=== PATIENT | female | born 1945 | race American Indian/Alaskan Native ===

== ENCOUNTER 2018-02-08 15:38 | Emergency (ER) | payer OTHER, MEDICARE ==
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
[2018-02-08] MEDS ORDERED: ULTRAM PO ONE (23:08)
[2018-02-08 23:29] VITALS: BP 168/88
== END 2018-02-08 23:28 | disposition home or self-care (01) ==
LOC: ED 15:38
DX: M17.12 Unilateral primary osteoarthritis, left knee (principal); S80.02XA Contusion of left knee, initial encounter; I10 Essential (primary) hypertension; E11.9 Type 2 diabetes mellitus without complications; E78.00 Pure hypercholesterolemia, unspecified; Z90.710 Acquired absence of both cervix and uterus; Z88.6 Allergy status to analgesic agent; V89.2XXA Person injured in unspecified motor-vehicle accident, traffic, initial encounter; Y93.89 Activity, other specified; Y92.488 Other paved roadways as the place of occurrence of the external cause; Y99.8 Other external cause status
CPT/HCPCS: 99284

== ENCOUNTER 2019-11-19 17:40 | Emergency (ER) | payer MEDICARE, OTHER ==
--- NOTE | 2019-11-19 20:00 | XRay Report ---
BILATERAL KNEE 3 VIEW(S) INDICATION / CLINICAL INFORMATION: MAIN: fall, EDEMA; Bilateral Knee Pain from Fall Last Week COMPARISON: Left knee radiograph from 02/08/2018 FINDINGS: 3 views of each knee. RIGHT: Moderately advanced osteoarthrosis probably most severe in the lateral compartment. No signifi cant joint effusion. LEFT: Moderately advanced tricompartmental osteoarthrosis. No significant joint effusion. There is symmetric subcutaneous soft tissue stranding at both knees. Signer Name: Ryan Soria MD Signed: 11/19/2019 7:55 PM Workstation Name: [id number]
--- NOTE | 2019-11-19 20:13 | Emergency Department Report ---
ED Fall HPI - General Chief Complaint: Extremity Injury, Lower Stated Complaint: LEG PAIN Time Seen by Provider: 11/19/19 19:11 Source: EMS Mode of arrival: Stretcher - History of Present Illness Initial Comments: Patient is a 74-year-old female presents emergency room with complaints of bilateral knee pain that began on november 09. She states that she has something in her bathtub to keep from slipping but it was not pressed all the way down and she accidentally slipped while getting out of the bathtub. She states that she landed on her bilateral knees but has more pain on the left knee than the right. She states that she has been ambulatory with discomfort. She states she has had swelling of the bilateral knees. She states that she has had issues with these knees before and has had to go to physical therapy. She denies any numbness or weakness. She denies any calf pain. She has a past medical history of DM, HTN, HLD. She denies any allergies to medications. - Related Data Home Medications Medication Instructions Recorded Confirmed Last Taken Aspirin 11/19/19 Unknown AtorvaSTATin [Lipitor] 20 mg PO QHS 11/19/19 11/19/19 Unknown Insulin Degludec [Tresiba 43 unit SQ 11/19/19 Unknown Flextouch U-100] Liraglutide [Victoza 2-Scott] 1.2 mg SQ QDAY 11/19/19 11/19/19 1 Day Ago ~11/18/19 Meloxicam [Mobic] 7.5 mg PO QDAY 11/19/19 11/19/19 Unknown Olmesartan Medoxomil [Benicar] 11/19/19 1 Day Ago ~11/18/19 Valacyclovir HCl [Valacyclovir] 500 mg PO 11/19/19 1 Day Ago ~11/18/19 hydrALAZINE [Apresoline TAB] 100 mg PO 11/19/19 1 Day Ago ~11/18/19 Previous Rx's Medication Instructions Recorded Last Taken Type Meloxicam [Mobic] 7.5 mg PO QDAY PRN #14 tablet 11/19/19 Unknown Rx Menthol/Camphor [[place] 1 applicatio TP BID #1 oint...g. 11/19/19 Unknown Rx Ointment] Allergies Allergy/AdvReac Type Severity Reaction Status Date / Time ibuprofen Allergy Unknown Verified 02/08/18 15:59 ED Review of Systems ROS: Stated complaint: LEG PAIN Other details as noted in HPI Comment: All other systems reviewed and negative ED Past Medical Hx - Past Medical History Hx Hypertension: Yes Hx Diabetes: Yes Hx Renal Disease: Yes Additional medical history: high cholestrol - Surgical History Additional Surgical History: hysterectomy - Social History Smoking Status: Never Smoker Substance Use Type: None - Medications Home Medications: Home Medications Medication Instructions Recorded Confirmed Last Taken Type Aspirin 11/19/19 Unknown History AtorvaSTATin [Lipitor] 20 mg PO QHS 11/19/19 11/19/19 Unknown History Insulin Degludec [Tresiba 43 unit SQ 11/19/19 Unknown History Flextouch U-100] Liraglutide [Victoza 2-Scott] 1.2 mg SQ QDAY 11/19/19 11/19/19 1 Day Ago History ~11/18/19 Meloxicam [Mobic] 7.5 mg PO QDAY 11/19/19 11/19/19 Unknown History Meloxicam [Mobic] 7.5 mg PO QDAY PRN #14 tablet 11/19/19 Unknown Rx Menthol/Camphor [[place] 1 applicatio TP BID #1 oint...g. 11/19/19 Unknown Rx Ointment] Olmesartan Medoxomil [Benicar] 11/19/19 1 Day Ago History ~11/18/19 Valacyclovir HCl [Valacyclovir] 500 mg PO 11/19/19 1 Day Ago History ~11/18/19 hydrALAZINE [Apresoline TAB] 100 mg PO 11/19/19 1 Day Ago History ~11/18/19 ED Physical Exam - General Limitations: Physical Limitation General appearance: alert, in no apparent distress - Head Head exam: Present: atraumatic, normocephalic - Eye Eye exam: Present: normal appearance - ENT ENT exam: Present: mucous membranes moist - Extremities Exam Extremities exam: Present: other (ttp to the right medial knee, ttp to the left medial knee and just inferior to the patella, decreased ROM of the bilateral knees secondary to discomfort, no obvious deformity, no obvious edema, no calf ttp, no bilateral leg swelling, neurovasculalry intact) - Neurological Exam Neurological exam: Present: alert, oriented X3 - Psychiatric Psychiatric exam: Present: normal affect, normal mood - Skin Skin exam: Present: warm, dry, intact ED Course Vital Signs 11/19/19 11/19/19 18:04 20:47 Temperature 98.4 F Pulse Rate 91 H 92 H Respiratory 20 16 Rate Blood Pressure 99/69 Blood Pressure 140/53 [Left] O2 Sat by Pulse 97 Oximetry ED Medical Decision Making - Radiology Data Radiology results: report reviewed BILATERAL KNEE 3 VIEW(S) INDICATION / CLINICAL INFORMATION: MAIN: fall, EDEMA; Bilateral Knee Pain from Fall Last Week COMPARISON: Left knee radiograph from 02/08/2018 FINDINGS: 3 views of each knee. RIGHT: Moderately advanced osteoarthrosis probably most severe in the lateral compartment. No significant joint effusion. LEFT: Moderately advanced tricompartmental osteoarthrosis. No significant joint effusion. There is symmetric subcutaneous soft tissue stranding at both knees. Signer Name: Ryan Soria MD Signed: 11/19/2019 7:55 PM Workstation Name: [id number] Transcribed By: DMWilla Dictated By: Ryan Soria MD Electronically Authenticated By: Ryan Soria MD Signed Date/Time: 11/19/191954 DD/ 51 TD/TT: - Medical Decision Making Patient is a 74-year-old female presents emergency room with complaints of bilateral knee pain that began on november 09. She states that she has something in her bathtub to keep from slipping but it was not pressed all the way down and she accidentally slipped while getting out of the bathtub. She states that she landed on her bilateral knees but has more pain on the left knee than the right. She states that she has been ambulatory with discomfort. She states she has had swelling of the bilateral knees. She states that she has had issues with these knees before and has had to go to physical therapy. She denies any numbness or weakness. She denies any calf pain. She has a past medical history of DM, HTN, HLD. She denies any allergies to medications. Vitals are stable. On exam:ttp to the right medial knee, ttp to the left medial knee and just inferior to the patella, decreased ROM of the bilateral knees secondary to discomfort, no obvious deformity, no obvious edema, no calf ttp, no bilateral leg swelling, neurovasculalry intact. XR bilateral knees: RIGHT: Moderately advanced osteoarthrosis probably most severe in the lateral compartment. No significant joint effusion. LEFT: Moderately advanced tricompartmental osteoarthrosis. No significant joint effusion. There is symmetric subcutaneous soft tissue stranding at both knees. Discussed x-ray results with patient and patient given x-ray report. Patient given pain medication while in the ED as she did not drive and pain improved. Patient given prescription for Mobic and tiger balm. Advised patient Please take medication as prescribed as needed. May also use ointment. May ice for 15 minutes at a time, rest, elevate the legs. Follow-up with an orthopedic doctor. Return to the emergency room for any new or worsening symptoms. - Differential Diagnosis Strain, sprain, fracture, dislocation, joint effusion, arthritis Critical care attestation.: If time is entered above; I have spent that time in minutes in the direct care of this critically ill patient, excluding procedure time. ED Disposition Clinical Impression: Bilateral knee pain Qualifiers: Chronicity: acute Qualified Code(s): M25.561 - Pain in right knee Disposition: DC- TO HOME OR SELFCARE Is pt being admited?: No Does the pt Need Aspirin: No Condition: Stable Instructions: Osteoarthritis (ED), RICE Therapy (ED) Additional Instructions: Please take medication as prescribed as needed. May also use ointment. May ice for 15 minutes at a time, rest, elevate the legs. Follow-up with an orthopedic doctor. Return to the emergency room for any new or worsening symptoms. Prescriptions: Meloxicam [Mobic] 7.5 mg PO QDAY PRN #14 tablet PRN Reason: pain Menthol/Camphor [[place] Ointment] 1 applicatio TP BID #1 oint...g. Referrals: DIEGO JACKSON MD [Staff Physician] - 3-5 Days [facility] [Provider Group] - 3-5 Days Time of Disposition: 20:12 Print Language: UKRAINIAN
[2019-11-19] MEDS ORDERED: traMADol 50 MG TAB PO ONE (20:19)
[2019-11-20] MEDS ORDERED: SODIUM CHLORIDE 0.9% 1000 ML 1,000 ML ONE (07:40)
[2019-11-20 11:09] VITALS: BP 148/86
== END 2019-11-20 11:09 | disposition home or self-care (01) ==
LOC: ED 17:40
DX: M25.562 Pain in left knee (principal); M25.561 Pain in right knee; I10 Essential (primary) hypertension; E11.9 Type 2 diabetes mellitus without complications; E78.00 Pure hypercholesterolemia, unspecified; Z87.448 Personal history of other diseases of urinary system; Z90.710 Acquired absence of both cervix and uterus; Z79.1 Long term (current) use of non-steroidal anti-inflammatories (NSAID); Z79.899 Other long term (current) drug therapy; Z79.4 Long term (current) use of insulin; Z88.8 Allergy status to other drugs, medicaments and biological substances
CPT/HCPCS: 73562; 99284; J7030